=== PATIENT | female | born 1950 | race American Indian/Alaskan Native ===

== ENCOUNTER 2018-03-21 10:16 | Inpatient (IN) | payer MEDICARE, OTHER ==
[2018-03-21] VITALS (316 sets, daily range): BP systolic 101–136; BP diastolic 44–96; PULSE 56–64; TEMP 97.1–97.8; O2SAT 93–100
[~2018-03-21] VITALS: Ht 160 cm; Wt 84.3 kg
[2018-03-21] MEDS ORDERED: NOVOLOG FLEX100 U/ML SQ (10:51)
[2018-03-21] MEDS ORDERED: LANTUS100 U/ML SQ (10:51)
[2018-03-21] MEDS ORDERED: LIPITOR 80MG80 MG PO (10:53)
[2018-03-21] MEDS ORDERED: ASPIRIN 81M81 MG/TA2 PO (10:53)
[2018-03-21] MEDS ORDERED: IMDUR 30MG30 MG/TAB PO (10:54)
[2018-03-21] MEDS ORDERED: NITROSTAT0.4 MG/TAB SL (10:54)
[2018-03-21] MEDS ORDERED: TYLENOL 325MG325 MG PO (10:55)
[2018-03-21] MEDS ORDERED: COMBIRESP IH (10:56)
[2018-03-21] MEDS ORDERED: TENORMIN 2525 MG/TAB PO (10:56)
[2018-03-21] MEDS ORDERED: OS-CAL 500 + D1 TAB PO (10:57)
[2018-03-21] MEDS ORDERED: ALLEGRA 180MG180 MG PO (10:58)
[2018-03-21] MEDS ORDERED: GLUCOTROL 5M5 MG/TAB PO (10:58)
[2018-03-21] MEDS ORDERED: NEURONTIN300 MG/CAP PO (10:58)
[2018-03-21] MEDS ORDERED: TUSSICAPS PO (10:59)
[2018-03-21] MEDS ORDERED: LIDODERM 5% PATC1 EA TP (11:00)
--- NOTE | 2018-03-21 11:00 | NUR ---
Pt arrived by EMS, pt transfered self from stretcher to ICU bed with minimal assistance. MD Jayda and MD Zaid notified of: chest pain 11/14, heparin gtt infusing upon arrival (paused until order entered & after HepXa drawn), Nitrolycerine gtt TORB from MD Jayda to continue nitroglycerine. Pts Friend/EmergencyContact Zev Crenshaw at bedside with pt. Call light within reach. No further questions at this time.
[2018-03-21] MEDS ORDERED: PRINIVIL10 MG PO (11:01)
[2018-03-21] MEDS ORDERED: LOVAZA1 GM PO (11:01)
[2018-03-21] MEDS ORDERED: PRILOSEC 20MG20 MG PO (11:03)
[2018-03-21] MEDS ORDERED: VITAMIN B COMPL1 SGL PO (11:05)
[2018-03-21] MEDS ORDERED: DETROL1 MG (11:05)
[2018-03-21] MEDS ORDERED: CVS GLUCOSE BIT1 CTB PO (11:06)
[2018-03-21 11:22] LABS: INR 1.1 (0.8-3.0); PROTHROMBIN TIME 12.5 SECONDS (9.7-12.8)
[2018-03-21 11:42] LABS: PARTIAL THROMBOPLASTIN TIME 159.4 SECONDS (26.0-37.0)
[2018-03-21 12:22] LABS: CHOLESTEROL 114 mg/dL (120-200); CHOLESTEROL RISK RATIO 2.6; HDL CHOLESTEROL 43 mg/dL; LDL CHOLESTEROL 61 mg/dL; TRIGLYCERIDE 50 mg/dL
[2018-03-21 12:37] LABS: TROPONIN-I < 0.012 ng/mL (0.000-0.035)
--- NOTE | 2018-03-21 18:30 | NUR ---
Pt off to Cardiac Cathlab
--- NOTE | 2018-03-21 19:28 | NUR ---
RECEIVED REPORT FROM SAMUEL BUSTAMANTE. PT STILL IN DOCTOR OF NURSING PRACTICE.
--- NOTE | 2018-03-21 19:53 | NUR ---
1952: PT RETURNED TO ICU RM 4 FROM [facility] [employer] DEVELOPER.
--- NOTE | 2018-03-21 20:20 | NUR ---
DR RAMOS IN PT ROOM AND ORDERS NITRO GTT TO BE D/C. NITRO GTT D/C AT THAT TIME.
--- NOTE | 2018-03-21 22:30 | NUR ---
DIME SIZE BLOODY DRAINAGE ON ANGIOSEAL DRESSING.
--- NOTE | 2018-03-21 22:49 | NUR ---
2249: PT TO CT VIA BED WITH SAMUEL LUIS
--- NOTE | 2018-03-21 23:35 | NUR ---
2335: PT RETURN TO ICU FROM CT VIA BED WITH SAMUEL LUIS.
[2018-03-22] VITALS (364 sets, daily range): BP systolic 101–150; BP diastolic 57–65; PULSE 58–68; TEMP 98.9; O2SAT 93–100
--- NOTE | 2018-03-22 01:08 | NUR ---
PT GIVEN LONG-ACTING INSULIN SQ EARLIER IN SHIFT. FOLLOWING CT, PT REFUSED SANDWICH. BS CHECKED AND WAS 83, PT OFFERED AND ACCEPTED 4 SALTINE CRACKERS WITH PEANUT BUTTER WITH DIET SPRITE AND WATER. PT ATE 100% OF SNACK AND SIPPING ON DRINKS.
--- NOTE | 2018-03-22 02:00 | NUR ---
0200: BP 79/46, HR 58 0203: BP RECYCLED 83/63, HR 60 0205: BP RECYCLED 93/48, HR 62 RIGHT FEMORAL SITE CHECKED. NO ADDITIONAL DRAINAGE, PT STATES SHE FEELS FINE WITH EXCEPTION OF MILD BACK DISCOMFORT FROM BULGING DISC. IV PUMPS CHECKED AND ACCURATE. 0209: BP RECYCLED 89/52, HR 61 HOSPITALIST IRAJ CALLED - WILL CONTACT BACK. CONTINUED TO MONITOR PT, AND RECYCLED BP FREQUENTLY. 0215: BP RECYCLED 76/41, HR 62 0221: BP RECYCLED 77/42, HR 64 HOSPITALIST IN ICU DEPARTMENT - DIRECTED MANUAL BP. 0227: UNABLE TO OBTAIN MANUAL BP ON LEFT ARM. HOSPITALIST IN ROOM. PT MENTIONS THAT BP MAY NOT BE POSSIBLE ON LEFT ARM DUE TO LEFT CAROTID BLOCKAGE. 0230: RIGHT ARM BP EASILY OBTAINABLE. BP 122/54 MANUAL. HOSPITALIST IRAJ NOTIFIED. 0339: AUTOMATIC NIBP CUFF REAPPLIED TO PT, BUT MOVED TO RIGHT ARM. BP 143/57, HR 62 0245: BP 144/59, HR 59
[2018-03-22 05:02] LABS: HEMOGLOBIN 12.3 g/dl (12.5-16.0); MEAN CELL VOLUME 93 fl (80.0-100.0); MEAN CORPUSCULAR HEMOGLOBIN 31 pg (27.0-31.0); MEAN CORPUSCULAR HGB CONC 33 g/dl (33.0-37.0); MEAN PLATELET VOLUME 8.6 fl (7.4-10.4); PLATELET COUNT 238 K/mm3 (130-400); RED BLOOD COUNT 3.98 M/mm3 (4.10-5.30); REDCELL DISTRIBUTION WIDTH-CV 13.2 % (11.5-14.5)
[2018-03-22 05:12] LABS: ALANINE AMINOTRANSFERASE 24 U/L (9-52); ALBUMIN 3.4 gm/dL (3.5-5.0); ALKALINE PHOSPHATASE 81 U/L (50-136); ANION GAP 7 mmol/L (7-16); AST,SGOT 22 U/L (15-37); BILIRUBIN,TOTAL 0.6 mg/dL (0.0-1.0); BLOOD UREA NITROGEN 13 mg/dL (7-17); CALCIUM 8.8 mg/dL (8.4-10.2); CARBON DIOXIDE 25 mmol/L (22-30); CHLORIDE 100 mmol/L (98-107); CREATININE, serum 0.88 mg/dL (0.52-1.25); GLUCOSE 118 mg/dL (74-106); POTASSIUM 4.5 mmol/L (3.4-5.0); SODIUM 132 mmol/L (137-145); TOTAL PROTEIN 6.4 gm/dL (6.4-8.2)
[2018-03-22 05:23] LABS: TROPONIN-I < 0.012 ng/mL (0.000-0.035)
--- NOTE | 2018-03-22 09:20 | NUR ---
PT OUT OF BED TO CHAIR, C/O SLIHGT DIZZINES WHICH RESOLVED WHEN SAT BACK DOWN
[2018-03-22] MEDS ORDERED: LOPRESSOR 225 MG/TAB PO (09:24)
[2018-03-22] MEDS ORDERED: ASPI325T6 PO (09:25)
[2018-03-22] MEDS ORDERED: ASPIRIN 81M81 MG/TA2 PO (09:27)
--- NOTE | 2018-03-22 11:10 | NUR ---
machine operator hop worker attended clinical rounds and met with patient to assess for discharge needs. Patient states she lives in her home, alone, in [place], [place] and will return there upon discharge. Patient states that she has support from Justin Dee and he will transport her home today. Patient's primary care provider is Dr Carlisle in [place]. Patient states she obtains her prescriptions at [facility] and does not have any difficulties. Patient states she drives and has been independent with her activities of daily living at home, and does not utilize outside agencies. Patient is discharged today and will return to her home.
--- NOTE | 2018-03-22 12:04 | NUR ---
Pt d/c at 1204, stable at time of d/c, denied any pain, discomfort or any new symptoms. D/C'ed to home with family. D/C instructions given to pt.
== END 2018-03-22 12:04 | disposition home or self-care (01) | DRG 287 ==
LOC: ICU 10:16
PROVIDERS: ADMIT Family Medicine
PROC: B2111ZZ Fluoroscopy of Multiple Coronary Arteries using Low Osmolar Contrast (ICD-10-PCS; principal; 2018-03-21)
PROC: B2151ZZ Fluoroscopy of Left Heart using Low Osmolar Contrast (ICD-10-PCS; 2018-03-21)
PROC: 4A023N7 Measurement of Cardiac Sampling and Pressure, Left Heart, Percutaneous Approach (ICD-10-PCS; 2018-03-21)
DX: R07.89 Other chest pain (principal); I25.10 Atherosclerotic heart disease of native coronary artery without angina pectoris; E11.9 Type 2 diabetes mellitus without complications; I10 Essential (primary) hypertension; E78.5 Hyperlipidemia, unspecified; E66.9 Obesity, unspecified; Z68.34 Body mass index [BMI] 34.0-34.9, adult; Z79.4 Long term (current) use of insulin; F17.210 Nicotine dependence, cigarettes, uncomplicated
CPT/HCPCS: 99223-AI; 99239; C1760; C1894; J1644; J1815; J2250; J2270; J2405; J3010; J7030; Q9967